=== PATIENT | male | born 1950 | race Caucasian/White ===

== ENCOUNTER 2017-06-21 07:01 | Day surgery (SDC) | payer OTHER, BC ==
[~2017-06-21] VITALS: Ht 185.4 cm; Wt 111.1 kg
[2017-06-21] MEDS ORDERED: MEPERIDINE HCL/PF 100 MG/ML AMP ONE ×2 (07:18→07:19)
[2017-06-21] MEDS ORDERED: MIDAZOLAM HCL 5 MG/5 ML VIAL ONE (07:19)
[2017-06-21] MEDS ORDERED: SIMETHICONE 40 MG/0.6 ML ML ONE (07:20)
[2017-06-21] MEDS: MIDAZOLAM HCL 5 MG/5 ML VIAL ONE ×4 (09:51→09:57)
[2017-06-21 15:39] VITALS: BP_SYST 115
== END 2017-06-21 11:25 | disposition home or self-care (01) ==
LOC: SDS 07:01 → MERGE 07:01 → SMU 07:24 → SDS 11:25
PROVIDERS: ATTEND Internal Medicine Gastroenterology
DX: Z12.11 Encounter for screening for malignant neoplasm of colon (principal); D12.2 Benign neoplasm of ascending colon; D12.4 Benign neoplasm of descending colon; D12.5 Benign neoplasm of sigmoid colon; K57.30 Diverticulosis of large intestine without perforation or abscess without bleeding; K64.8 Other hemorrhoids; I10 Essential (primary) hypertension; E11.9 Type 2 diabetes mellitus without complications; E78.5 Hyperlipidemia, unspecified; J44.9 Chronic obstructive pulmonary disease, unspecified; Z79.84 Long term (current) use of oral hypoglycemic drugs; Z87.891 Personal history of nicotine dependence
CPT/HCPCS: 45385; 82962; 88305; J2175; J2250; 45380